=== PATIENT | female | born 1995 | race Two or more races ===

== ENCOUNTER 2024-11-27 12:20 | Inpatient (IN) | payer BC, OTHER ==
[~2024-11-27] VITALS: Ht 157.5 cm; Wt 60.3 kg
[2024-11-27] MEDS ORDERED: WITCH HAZEL-GLYCERIN PAD TOP PRN (12:30)
[2024-11-27] MEDS ORDERED: BUTORPHANOL TARTRATE 2 MG/1 ML VIAL IV PRN ×2 (12:30)
[2024-11-27] MEDS ORDERED: DERMOPLAST 60ML BOTTLE TOP PRN (12:30)
[2024-11-27] MEDS ORDERED: PHISODERM TOP SOLN 240ML BTL TOP PRN (12:30)
[2024-11-27] MEDS ORDERED: LIDOCAINE 2%HCL (LOCAL ANESTH.) INJ 20ML MDV IJ PRN (12:30)
[2024-11-27] MEDS ORDERED: TERBUTALINE SULFATE 1 MG/ML 1ML VIAL SC PRN (13:15)
--- NOTE | 2024-11-27 13:19 | DVHHP2 ---
OB CC & HPI Date Date of Admission: Nov 27, 2024 Allergies: Coded Allergies: NO KNOWN ALLERGIES (Unverified , 11/27/24) Current Medications Current Medications Medications (Trade) Dose Ordered Sig/Jazzy Route PRN Reason Start Time Stop Time Status Last Admin Lactated Ringer's 1,000 ml @ 125 mls/hr Q8H IV 11/27/24 12:30 UNV Witch Renetta (Tucks) 1 pad PRN PRN TOP PERINEAL AREA DISCOMFORT 11/27/24 12:30 UNV Sodium Lauryl Sulfate (Phisoderm) 240 ml PRN PRN TOP PERINEAL AREA DISCOMFORT 11/27/24 12:30 UNV Benzocaine (Dermoplast) 1 applic PRN PRN TOP PERINEAL AREA DISCOMFORT 11/27/24 12:30 UNV Butorphanol Tartrate (Stadol Injection) 1 mg Q4HPRN PRN IV MODERATE PAIN (4-6 PAIN SCALE) 11/27/24 12:30 UNV Butorphanol Tartrate (Stadol Injection) 2 mg Q4HPRN PRN IV SEVERE PAIN (7-10 PAIN SCALE) 11/27/24 12:30 UNV Misoprostol (Cytotec) 50 mcg Q4HPRN PRN PO CERVICAL RIPENING 11/27/24 12:30 11/27/24 13:16 DC Lidocaine HCl (Xylocaine) 20 ml ONCE PRN IJ PERINEAL AREA DISCOMFORT 11/27/24 12:30 UNV Oxytocin 1,000 ml @ 6 ml/hr Q24H IV 11/27/24 13:15 UNV Terbutaline Sulfate (Brethine Inj) 0.25 mg ONCE PRN SC Uterine tachysystole 11/27/24 13:15 UNV OB Admission Exam Physical Exam Pelvic Exam: 3-4/70/-1 Membranes: Intact Heart Rate: 130's Accelerations: Accelerations Present Decelerations: No Decelerations Car Tracer Variability: Average (6-25) Contractions on Admission: 6-10 Minutes Apart Intensity: Mild OB Plan Plan Admitting Diagnosis: INDUCTION OF LABOR SARACRISTALELLA KURTZMDW Nov 27, 2024 13:19
[2024-11-27 13:22] LABS: Hematocrit 36.9 % (36.0-46.0); Hemoglobin 12.6 g/dL (12.2-16.2); Mean Corpuscular Hemoglobin 30.5 pg (28.0-32.0); Mean Corpuscular Volume 89.1 fL (80.0-100.0); Nucleated Red Blood Cells % 0.0 %
[2024-11-27 13:25] LABS: Urine Protein, UAD Negative (Negative)
[2024-11-27 13:39] LABS: Amphetamine Screen, Urine Neg (NEGATIVE); Barbiturate Scree,Urine Neg (NEGATIVE); Benzodiazephine Screen, Urine Neg (NEGATIVE); Cocaine Screen, Urine Neg (NEGATIVE); Opiate Scree,Urine Neg (NEGATIVE); Phencyclidine Screen, Urine Neg (NEGATIVE)
[2024-11-27 13:41] LABS: Cannabinoid Screen, Urine Neg (NEGATIVE)
[2024-11-27 13:42] LABS: Alanine Aminotransferase < 9 U/L (7-40); Albumin 3.7 g/dL (3.2-4.8); Alkaline Phosphatase 124 U/L (46-116); Anion Gap 12 (5-15); BUN/Creatinine Ratio 9.6 (10.0-20.0); Bilirubin, Total 0.9 mg/dL (0.2-1.0); Blood Urea Nitrogen < 5 mg/dL (9-23); Calcium 8.5 mg/dL (8.7-10.4); Carbon Dioxide 20 mmol/L (20-31); Chloride 106 mmol/L (98-107); Glucose 70 mg/dL (74-106); Potassium 3.6 mmol/L (3.5-5.1); Sodium 138 mmol/L (136-145); Total Protein 6.4 g/dL (5.7-8.2)
[2024-11-27] MEDS: LIDOCAINE HCL 2 %PF INJ 10ML AMP IJ ONE (13:45)
[2024-11-27 13:52] LABS: INR 0.97 (0.9-1.15); Partial Thromboplastin Time 27.6 SEC (24.5-34.5); Prothrombin Time 10.3 sec (9.3-11.8)
--- NOTE | 2024-11-27 14:33 | EPIDURAL ---
Anesthesia Procedural Note - Epidural Informed consent obtained?: Yes Medication Administered: Fentanyl 100 mcg Sterile prept drape: Yes Spinal level of insertion: L4-L5 Test dose of lidocaine & Epine: Negative Infusion started: Yes Start time: 13:50 End time: 14:20 Procedure description Procedure description: Called for labor analgesia. History taken, chart reviewed, patient examined. Patient is here for labor augmentation. History of scoliosis. Patient requesting epidural prior to initiation of pitocin. Informed consent for CSE obtained. Sitting position, sterile prep and drape. L4-5 space infiltrated with 1% lido. Epidural needle placed with RAMA at 4cm. 25G spinal needle +clear CSF. 15mcg fentanyl given IT. Epidural catheter secured at 10cm. Aspiration and test dose (3cc 1.5 % lido with epi) negative. 85mcg fentanyl given via epidural. Patient reports pain relief. 0.2%ropivacaine infusion started. Will follow as needed. CHLOÉ WYATT MD Nov 27, 2024 14:33
[2024-11-27] MEDS: FAMOTIDINE (10MG/ML) 2ML VL IV ONE (14:50)
[2024-11-27] MEDS: LACT. RINGERS/OXYTOCIN 20UNITS 1,000 ML IV SCH (15:05)
[2024-11-27] MEDS: ROPIVACAINE HCL 100 ML ONE (15:06)
[2024-11-27] MEDS: fentaNYL CITRATE 100 MCG/2 ML VL IV ONE (15:07)
[2024-11-27] MEDS: fentaNYL CITRATE 100 MCG/2 ML VL ONE (15:08)
[2024-11-27] MEDS: LACTATED RINGER'S 1,000 ML IV SCH (15:56)
--- NOTE | 2024-11-27 16:48 | DVHHP2 ---
OB CC & HPI Date Date of Admission: Nov 27, 2024 Patient Identification: : 2 Para: 1 EDC: Dec 03, 2024 EGA: 39.1wks Chief Complaints: Reason for admission: induction of labor (elective, schedule) History of Present Complaints 29yo IUP@39.1wks presents for scheduled elective IOL. Denies LOF/VB/APPIAH/vis ion changes/RUQ pain. Endorses +FM and irregular UCs. PNC: Routine PNC at [facility] OB, adequate visits, PNC complicated by iron deficiency anemia. 3hr GTT wnl, dating based on 8wk sono, GBS negative. OB hx: x1, uncomplicated Past Medical History Cardiac: No pertinent Hx Pulmonary: No pertinent Hx Central Nervous System: No pertinent Hx GI: No pertinent Hx Hemotology/Oncology: No pertinent Hx Hepatobiliary: No pertinent Hx Psychiatric: No pertinent Hx Musculoskeletal: No pertinent Hx Rheumotologic: No pertinent Hx Infectious Disease: No peritnent Hx ENT: No pertinent Hx Renal/: No pertinent Hx Endocrine: No pertinent Hx Dermatology: No pertinent Hx Past Surgical History: Other (endometrosis surgery in 2018) OB History OB History Care: Good Care Ultrasounds: Normal mid trimester US Obstetrical Complications: None Medical Complications: None Allergies: Coded Allergies: NO KNOWN ALLERGIES (Unverified , 11/27/24) Home Meds PNV Current Medications Current Medications Medications (Trade) Dose Ordered Sig/Jazzy Route PRN Reason Start Time Stop Time Status Last Admin Lactated Ringer's 1,000 ml @ 125 mls/hr Q8H IV 11/27/24 12:30 11/27/24 15:56 Witch Renetta (Tucks) 1 pad PRN PRN TOP PERINEAL AREA DISCOMFORT 11/27/24 12:30 Sodium Lauryl Sulfate (Phisoderm) 240 ml PRN PRN TOP PERINEAL AREA DISCOMFORT 11/27/24 12:30 Benzocaine (Dermoplast) 1 applic PRN PRN TOP PERINEAL AREA DISCOMFORT 11/27/24 12:30 Butorphanol Tartrate (Stadol Injection) 1 mg Q4HPRN PRN IV MODERATE PAIN (4-6 PAIN SCALE) 11/27/24 12:30 Butorphanol Tartrate (Stadol Injection) 2 mg Q4HPRN PRN IV SEVERE PAIN (7-10 PAIN SCALE) 11/27/24 12:30 Misoprostol (Cytotec) 50 mcg Q4HPRN PRN PO CERVICAL RIPENING 11/27/24 12:30 11/27/24 13:16 DC Lidocaine HCl (Xylocaine) 20 ml ONCE PRN IJ PERINEAL AREA DISCOMFORT 11/27/24 12:30 Oxytocin 1,000 ml @ 6 ml/hr Q24H IV 11/27/24 13:15 11/27/24 15:05 Terbutaline Sulfate (Brethine Inj) 0.25 mg ONCE PRN SC Uterine tachysystole 11/27/24 13:15 Family & Social History Family/Social History Past Family/Social History: denies Blood Type: A+ Rubella: immune RPR/VDRL: Negative GBS Status: Negative HBsAG: Negative Review of Systems Constitutional: No symptom reported Ears, Nose, & Throat: No symptom reported Eyes: No symptom reported Pulmonary/Respiratory: No symptom reported Cardiovascular: No symptom reported Gastrointestinal: No symptom reported Genitourinary: No symptom reported Musculoskeletal: No symptom reported Skin: No symptom reported Psychiatric: No symptom reported Endocrine: No symptom reported Hemotologic/Lymphatic: No symptom reported OB Admission Exam Physical Exam Vitals: Vital Signs Date Time Temp Pulse Resp B/P (MAP) Pulse Ox O2 Delivery O2 Flow Rate FiO2 11/27/24 15:07 105/69 HEENT: TMs Normal, Fontanelles Normal, Nasal Mucosa Normal, Eyes non-injected, Oropharynx Normal, PERRLA, Moist Membranes, EOMI Heart: Rhythm Normal Lungs: Clear Abdomen: Gravid Extremities: Normal Reflexes: Normal Pelvic Exam: 3.5/70/-1 Membranes: Intact Heart Rate: 130's Accelerations: Accelerations Present Decelerations: No Decelerations Mcc Variability: Average (6-25) Contractions on Admission: 6-10 Minutes Apart Intensity: Mild OB Plan Plan Admitting Diagnosis: elective INDUCTION OF LABOR Plan: Induction Induction Methd: Pitocin protocol Other Plan: A: 29yo IUP@39.1wks Elective Induction of Labor Category I EFM Intact Membranes GBS negative P: Admit to L&D Informed consent obtained Discussed risks, benefits, alternatives of elective IOL with pt. Pt consents to IOL with IV pitocin after epidural placement first. monitoring per order Routine labs ordered Pain mgmt PRN Frequent position changes in bed encouraged Limit SVE unless necessary Intrauterine resuscitation PRN Anticipate CNM will consult with Dr. Bear PRN Visit Coding OBGYN Date of Service: Nov 27, 2024 Billing Provider: THOMAS HORTA CNM PRIMARY SCHOOL PRINCIPAL Common Visit Codes: [id number] INP/OBS CARE (MOD) PRIMARY SCHOOL PRINCIPAL Procedure Codes: 11966-84- NON-STRESS TEST THOMAS HORTA CNM Nov 27, 2024 16:48
[2024-11-27] MEDS: LACTATED RINGER'S 1,000 ML IV ONE (18:04)
--- NOTE | 2024-11-27 19:13 | DVHPN2 ---
CNM Labor Progress Note Date and Time Seen Date Seen: Nov 27, 2024 Time Seen: 18:40 Subjective Subjective Comment Pt denies pain or pressure with epidural. Objective Vital Signs VSS, see CPN Monitoring Method Monitoring Method: External Heart Rate Heart Rate Baseline: 130 Heart Rate Variability: Moderate Presence of FHR Accelerations: Yes Presence of FHR Decelerations: Yes Heart Rate Type of Decel: Early Deceleraions, Variable Decelerations (x1) Comment on Trends or Patterns: maternal position changed Are all 5 Components of the FH: Yes Contractions Contractions Frequency: Other (q2-4min) Duration of Contraction: 70 Contractions Intensity: Moderate Contractions Resting Tone: Relaxed Membranes Membranes: Bulging Vaginal Exam Vag Exam Deferred: No Vaginal Exam Dilation: 6 Vaginal Exam Effacement: 70 Vaginal Exam Station: -1 Vaginal Exam Presentation: VTX Vaginal Exam Show: Small Medications Medications - Pitocin: Yes (6mu) Medication - Epidural: Yes Lab Results Lab Results Vital Signs Date Time Temp Pulse Resp B/P (MAP) Pulse Ox O2 Delivery O2 Flow Rate FiO2 11/27/24 15:07 105/69 Current Medications Medications (Trade) Dose Ordered Sig/Jazzy Start Time Stop Time Status Last Admin Dose Admin Lactated Ringer's 1,000 ml @ 125 mls/hr Q8H 11/27/24 12:30 11/27/24 15:56 125 MLS/HR Witjulia Ernetta (Tucks) 1 pad PRN PRN 11/27/24 12:30 Sodium Lauryl Sulfate (Phisoderm) 240 ml PRN PRN 11/27/24 12:30 Benzocaine (Dermoplast) 1 applic PRN PRN 11/27/24 12:30 Butorphanol Tartrate (Stadol Injection) 1 mg Q4HPRN PRN 11/27/24 12:30 Butorphanol Tartrate (Stadol Injection) 2 mg Q4HPRN PRN 11/27/24 12:30 Misoprostol (Cytotec) 50 mcg Q4HPRN PRN 11/27/24 12:30 11/27/24 13:16 DC Lidocaine HCl (Xylocaine) 20 ml ONCE PRN 11/27/24 12:30 Oxytocin 1,000 ml @ 6 ml/hr Q24H 11/27/24 13:15 11/27/24 15:05 6 ML/HR Terbutaline Sulfate (Brethine Inj) 0.25 mg ONCE PRN 11/27/24 13:15 Oxytocin 500 ml @ 999 mls/hr Q31M ONCE 11/27/24 13:15 11/27/24 13:53 DC Oxytocin 500 ml @ 125 mls/hr Q4H ONCE 11/27/24 13:45 11/27/24 17:44 DC Ephedrine Sulfate (ePHEDrine SULFATE) 10 mg PRN ONCE 11/27/24 13:45 11/27/24 13:55 DC Fentanyl Citrate 100 mcg ONCE ONCE 11/27/24 13:45 11/27/24 13:55 DC 11/27/24 15:07 100 MCG Lidocaine HCl (Xylocaine-Pf 2% Injection) 10 ml ONCE ONCE 11/27/24 13:45 11/27/24 13:55 DC Lactated Ringer's 1,000 ml @ 1,000 mls/hr Q1H ONCE 11/27/24 13:45 11/27/24 14:44 DC 11/27/24 18:04 1,000 MLS/HR Famotidine (Pepcid Injection) 20 mg ONCE ONCE 11/27/24 14:30 11/27/24 14:42 DC 11/27/24 14:50 20 MG Laboratory Tests Test 11/27/24 12:51 11/27/24 12:30 Range/Units White Blood Count 8.7 4.4-10.8 10^3/uL Red Blood Count 4.14 4.0-5.20 10^6/uL Hemoglobin 12.6 12.2-16.2 g/dL Hematocrit 36.9 36.0-46.0 % Mean Corpuscular Volume 89.1 80.0-100.0 fL Mean Corpuscular Hemoglobin 30.5 28.0-32.0 pg Mean Corpuscular Hemoglobin Concent 34.2 32.0-36.0 g/dL Red Cell Distribution Width 13.3 11.8-14.3 % Platelet Count 157 140-450 10^3/uL Mean Platelet Volume 9.2 6.9-10.8 fL Neutrophils (%) (Auto) 76.6 37.0-80.0 % Lymphocytes (%) (Auto) 18.2 10.0-50.0 % Monocytes (%) (Auto) 4.4 0.0-12.0 % Eosinophils (%) (Auto) 0.5 0.0-7.0 % Basophils (%) (Auto) 0.3 0.0-2.0 % Neutrophils # (Auto) 6.7 1.6-8.6 10 ^3/uL Lymphocytes # (Auto) 1.6 0.4-5.4 10 ^3/uL Monocytes # (Auto) 0.4 0-1.3 10 ^3/uL Eosinophils # (Auto) 0 0-0.8 10 ^3/uL Basophils # (Auto) 0 0-0.2 10 ^3/uL Nucleated Red Blood Cells 0.0 % Prothrombin Time 10.3 9.3-11.8 sec Prothrombin Time INR 0.97 0.9-1.15 Activated Partial Thromboplast Time 27.6 24.5-34.5 SEC Sodium Level 138 136-145 mmol/L Potassium Level 3.6 3.5-5.1 mmol/L Chloride Level 106 98-107 mmol/L Carbon Dioxide Level 20 20-31 mmol/L Anion Gap 12 5-15 Blood Urea Nitrogen < 5 L 9-23 mg/dL Creatinine 0.52 L 0.550-1.02 mg/dL Glomerular Filtration Rate Calc 128 >90 mL/min BUN/Creatinine Ratio 9.6 L 10.0-20.0 Serum Glucose 70 L 74-106 mg/dL Calcium Level 8.5 L 8.7-10.4 mg/dL Total Bilirubin 0.9 0.2-1.0 mg/dL Aspartate Amino Transferase (AST) 19 13-40 U/L Alanine Aminotransferase (ALT) < 9 7-40 U/L Alkaline Phosphatase 124 H 46-116 U/L Total Protein 6.4 5.7-8.2 g/dL Albumin 3.7 3.2-4.8 g/dL Treponema pallidum Antibody Non-reactive Negative Urine Color Yellow Yellow Urine Clarity Clear Clear Urine pH 6.0 5.0-9.0 Urine Specific [place] 1.018 1.001-1.035 Urine Protein Negative Negative Urine Ketones Trace Negative Urine Blood Negative Negative /uL Urine Nitrite Negative Negative Urine Bilirubin Negative Negative Urine Urobilinogen Normal Negative mg/dL Urine Leukocyte Esterase 1+ Negative /uL Urine RBC 3 0 - 4 /hpf Urine Microscopic WBC 3 0-5 /HPF Urine Squamous Epithelial Cells Few <5 /hpf Urine Bacteria Few H None Seen /hpf Urine Mucus Few None Seen Urine Glucose Normal Normal mg/dL Urine Opiates Screen Neg NEGATIVE Urine Fentanyl Screen Neg NEGATIVE Urine Barbiturates Screen Neg NEGATIVE Urine Phencyclidine Screen Neg NEGATIVE Urine Amphetamines Screen Neg NEGATIVE Urine Benzodiazepines Screen Neg NEGATIVE Urine Cocaine Screen Neg NEGATIVE Urine Cannabinoids Screen Neg NEGATIVE Assessment Assessment A: 29yo IUP@39.1wks Elective Induction of Labor Category II EFM Intact Membranes GBS negative Plan Plan P: Continue with IV pitocin titration per policy Reassess later for possible AROM when category I EFM monitoring per order Pain mgmt PRN Frequent position changes in bed encouraged Limit SVE unless necessary Intrauterine resuscitation PRN Anticipate CNM will consult with Dr. Bear PRN Plan discussed with: Patient, Spouse, Other (family) Visit Coding OBGYN Date of Service: Nov 27, 2024 Billing Provider: THOMAS HORTA CNM LACING CUTTER Common Visit Codes: [id number] INP/OBS CARE(MOD) THOMAS HORTA CNM Nov 27, 2024 19:13
[2024-11-27] MEDS: ONDANSETRON HCL 4 MG/2 ML VIAL IV PRN (19:22)
--- NOTE | 2024-11-27 23:09 | LDN2 ---
Labor and Delivery Note Date 11/27/24 Age 29 2 Para now 2 AB 0 EDC 12/03/24 EGA 39.1wks Diagnosis elective IOL then Vaginal Delivery: VTX Vacuum Assisted: No Placenta: Spontaneous Sex: Female Weight 3495g (7lbs 11oz) Apgars 9/9 Nuchal Cord Transected: No Amniotic Fluid: Clear Anesthesia epidural Episiotomy: No Extension: No Repaired with n/a EBL QBL 400ml Labs Blood Bank 11/27/24 12:51: Blood Type A POSITIVE Complications none Conditions stable Senior Salesforce Developer Hay Comments/Significant Med Adali With maternal pushing efforts, modified Ritgen maneuver done to aid in faster since audible FHR in the 70s. At 2208 this 29yo now delivered a viable Female by w/ APGARS 9/9. SONG presentation. Infant placed skin to skin on pts chest. Cord clamped and cut after pulsation ceased. Unable to collect cord blood. Pitocin IV bolus started. Intact 3-vessel cord placenta delivered spontaneously, Chavo. Placenta sent to pathology. Patient had epidural anesthesia. Cervix/vagina/labial inspected (intact) and perineal abrasion noted (hemostatic, repair not necessary). Fundus 2-U, firm, midline, and light lochia. QBL 400ml. VSS. Count correct x2. Patient to care and baby to couplet care, both stable. Visit Coding OBGYN Date of Service: Nov 27, 2024 Billing Provider: THOMAS HORTA CNM MASH PROCESSING OPERATOR Common Visit Codes: PROCEDURE ONLY MASH PROCESSING OPERATOR Procedure Codes: [id number] DEL INCLUDING THOMAS HORTA CNM Nov 27, 2024 23:09
[2024-11-28] MEDS: LACT. RINGERS/OXYTOCIN 20UNITS 500 ML IV ONE ×2 (01:53→01:55)
[2024-11-28 02:33] VITALS: BP 125/60; PULSE 107; RESP 18; TEMP 98; O2SAT 98
[2024-11-28] MEDS: IBUPROFEN 600 MG TAB PO PRN (04:33)
[2024-11-28] MEDS: DOCUSATE SOD 100 MG CAP PO SCH (07:00)
[2024-11-28 07:19] VITALS: BP 125/61; PULSE 69; RESP 16; TEMP 98.2; O2SAT 96
[2024-11-28] MEDS: ACETAMINOPHEN 325 MG TAB PO PRN (07:58)
[2024-11-28 08:06] LABS: Hematocrit 34.1 % (36.0-46.0); Hemoglobin 11.9 g/dL (12.2-16.2); Mean Corpuscular Hemoglobin 30.9 pg (28.0-32.0); Mean Corpuscular Volume 88.9 fL (80.0-100.0); Nucleated Red Blood Cells % 0.0 %
[2024-11-28] MEDS: PRENATAL VITAMIN TAB PO SCH (09:33)
[2024-11-28 10:36] VITALS: BP 123/83; PULSE 96; RESP 16; TEMP 97.9; O2SAT 97
--- NOTE | 2024-11-28 10:53 | DVHPN2 ---
Progress Note Date Seen: Nov 28, 2024 Subjective S: bleeding is less, eating food without issues, denies lightheaded/dizziness, pain well controlled with oral medications, vital signs Vital Sign Date Time Temp Pulse Resp B/P (MAP) Pulse Ox O2 Delivery O2 Flow Rate FiO2 11/28/24 10:36 97.9 96 16 123/83 (96) 97 97.9 11/28/24 07:00 Room Air Total Intake and Output 11/27/24 11/27/24 11/28/24 15:00 23:00 07:00 Output Total 1550 ml Balance -1550 ml medications Current Medications Medications Dose Ordered Sig/Jazzy Route Start Time Stop Time Status Last Admin Dose Admin Witjulia Renetta 1 pad PRN PRN TOP 11/27/24 12:30 Sodium Lauryl Sulfate 240 ml PRN PRN TOP 11/27/24 12:30 Benzocaine 1 applic PRN PRN TOP 11/27/24 12:30 Ondansetron HCl 4 mg Q4HPRN PRN IV 11/27/24 19:15 11/27/24 19:22 4 MG Ibuprofen 600 mg Q6HP PRN PO 11/27/24 23:00 11/28/24 10:36 600 MG Acetaminophen 650 mg Q6HPRN PRN PO 11/27/24 23:00 11/28/24 07:58 650 MG Prenat Multivit/ Combination Technician/Iron/Folic Ac 1 DAILY PO 11/28/24 10:00 11/28/24 09:33 1 Docusate Sodium 100 mg DAILY PO 11/28/24 07:00 laboratory and microbiology Laboratory Tests 11/28/24 07:07 11/27/24 12:51 Test 11/27/24 12:51 Range/Units Serum Glucose 70 L 74-106 mg/dL Objective O: VSS Abd: soft, non-tender, fundus 2-U/firm/midline, active bowel sounds, no rebound or guarding Perineum: edges well approximated, no erythema/edema noted Ext: Non-tender, No edema Lochia: minimal See lab results Problems(with codes): (1) (normal spontaneous vaginal delivery) (2) Intact perineum (3) Precipitous drop in hematocrit Assessment/Plan A/P: 29yo now PPD#1 s/p -Continue with routine PP care Plan discussed with: Patient, Spouse, Other (family) Visit Coding OBGYN Date of Service: Nov 28, 2024 Billing Provider: THOMAS HORTA CNM MEDICAL DEVICE Common Visit Codes: [id number] INP/OBS CARE(MOD) THOMAS HORTA CNM Nov 28, 2024 10:53
[2024-11-28 15:14] VITALS: BP 123/72; PULSE 89; RESP 12; TEMP 98.6; O2SAT 96
[2024-11-28 18:30] VITALS: BP 104/75; PULSE 84; RESP 18; TEMP 98.4; O2SAT 99
[2024-11-28] MEDS ORDERED: DOCU-265 PO (19:00)
[2024-11-28] MEDS ORDERED: IBU600T PO (19:00)
[2024-11-28] MEDS ORDERED: PREN-96 PO (19:00)
[2024-11-28 23:30] VITALS: BP 125/65; PULSE 90; RESP 16; TEMP 98; O2SAT 98
--- NOTE | 2024-11-29 00:29 | DVHPN2 ---
Progress Note Date Seen: Nov 29, 2024 Subjective S: bleeding is less, eating food without issues, denies lightheaded/dizziness, denies APPIAH, vision changes or epigastric pain. pain well controlled with oral medications, no concerns with urinating, passing flatus, no BM yet, ambulating well, well, reports intermittent pain in periumbilical area with movement. BCM undecided. vital signs Vital Sign Date Time Temp Pulse Resp B/P (MAP) Pulse Ox O2 Delivery O2 Flow Rate FiO2 11/28/24 18:30 Room Air 11/28/24 18:30 98.4 84 18 104/75 (85) 99 98.4 Total Intake and Output 11/28/24 11/28/24 11/29/24 15:00 23:00 07:00 Intake Total 1500 ml Output Total 300 ml Balance -300 ml 1500 ml medications Current Medications Medications Dose Ordered Sig/Jazzy Route Start Time Stop Time Status Last Admin Dose Admin Witjulia Renetta 1 pad PRN PRN TOP 11/27/24 12:30 Sodium Lauryl Sulfate 240 ml PRN PRN TOP 11/27/24 12:30 Benzocaine 1 applic PRN PRN TOP 11/27/24 12:30 Ondansetron HCl 4 mg Q4HPRN PRN IV 11/27/24 19:15 11/27/24 19:22 4 MG Ibuprofen 600 mg Q6HP PRN PO 11/27/24 23:00 11/28/24 18:50 600 MG Acetaminophen 650 mg Q6HPRN PRN PO 11/27/24 23:00 11/28/24 14:07 650 MG Prenat Multivit/ Shipyard Helper/Iron/Folic Ac 1 DAILY PO 11/28/24 10:00 11/28/24 09:33 1 Docusate Sodium 100 mg DAILY PO 11/28/24 07:00 laboratory and microbiology Laboratory Tests 11/28/24 07:07 11/27/24 12:51 Test 11/27/24 12:51 Range/Units Serum Glucose 70 L 74-106 mg/dL Objective O: VSS Chest: heart and lung sounds normal. Abd is soft, non-tender, fundus firm midline, BS present, no rebound or guarding, no umbilical hernia noted Perineum is intact BLE: Non-tender, no edema Lochia - minimal see Labs Problems(with codes): (1) 39 weeks gestation of (2) (normal spontaneous vaginal delivery) (3) Intact perineum Assessment/Plan 29 yo ppd#2 s/p doing well. Rh status + Rubella status immune Pain control with PO medications Bowel regimen encouraged P: D/C home today Rx sent to pharmacy precautions and preeclampsia warning signs reviewed f/u in 2wks at [facility] OB office Plan discussed with: Patient, Spouse, Other (family) SHEREEN YARBROUGH Nov 29, 2024 00:29
--- NOTE | 2024-11-29 00:31 | DVHDS2 ---
Obstetrics Discharge Summary Obstetrics Discharge Summary Date of Admission: Nov 27, 2024 Date of Discharge: Nov 29, 2024 Reason For Admission: Induction of Labor Procedures: NST Intrapartum Procedures: Spontaneous vaginal deliv Procedures: Hct/date: (11/28/2024), Hgb/date: (11/28/2024) Operative Complicat: None Discharge Diagnosis: Term -Delivered Discharge Information: Activity (As tolerated, no heavy lifting for the next 6 weeks), Diet (Routine), Medications (see med rx), Instructions (Routine), Di scharge to (Home), Accompanied by, Discarge date (11/29/2024) Visit Coding OBGYN Date of Service: Nov 29, 2024 Billing Provider: THOMAS HORTA CNM VOCATIONAL REHAB CONSULTANT Common Visit Codes: [id number]/[id number] DISCH DAY <30MIN SHEREEN YARBROUGH Nov 29, 2024 00:31
[2024-11-29 03:03] VITALS: BP 114/71; PULSE 65; RESP 16; TEMP 98.1; O2SAT 98
[2024-11-29 06:52] VITALS: BP 119/57; PULSE 72; RESP 16; TEMP 98.6; O2SAT 95
[2024-11-29 10:36] VITALS: BP 123/75; PULSE 81; RESP 16; TEMP 97.9; O2SAT 97
== END 2024-11-29 10:52 | disposition home or self-care (01) | DRG 806 ==
LOC: EEVIPCON 12:20 → LDRP 12:20
PROVIDERS: ADMIT Obstetrics & Gynecology; ATTEND Obstetrics & Gynecology
PROC: 10E0XZZ Delivery of Products of Conception, External Approach (ICD-10-PCS; principal; 2024-11-27)
PROC: 3E033VJ Introduction of Other Hormone into Peripheral Vein, Percutaneous Approach (ICD-10-PCS; 2024-11-27)
PROC: 3E0R3BZ Introduction of Anesthetic Agent into Spinal Canal, Percutaneous Approach (ICD-10-PCS; 2024-11-27)
PROC: 00HU33Z Insertion of Infusion Device into Spinal Canal, Percutaneous Approach (ICD-10-PCS; 2024-11-27)
PROC: 10907ZC Drainage of Amniotic Fluid, Therapeutic from Products of Conception, Via Natural or Artificial Opening (ICD-10-PCS; 2024-11-27)
DX: O90.89 Other complications of the puerperium, not elsewhere classified (principal); R71.0 Precipitous drop in hematocrit; Z37.0 Single live birth; Z3A.39 39 weeks gestation of pregnancy; O99.02 Anemia complicating childbirth
CPT/HCPCS: 36415; 59025; 59409; 62282; 80053; 80307; 81001; 85025; 85610; 85730; 86780; 86850; 86900; 86901; 94760; 94762; 96360; 96361; 96365; 96366; 96374; G0378; J2405; J2590; J3490